=== PATIENT | female | born 1955 | race Caucasian/White ===

== ENCOUNTER 2022-07-20 07:52 | Day surgery (SDC) | payer MEDICARE, MEDICAID ==
[~2022-07-20] VITALS: Ht 154.9 cm; Wt 118.4 kg
[~2022-07-20 07:52] MED LIST: ASPE16CR TOP; BROV15NE INH; CEFUROXIME 1MG/0.1ML INTRACAMERAL INJ As Ordered ONE; CYCLOPENTOLATE 1% OPHTH SOLN 2ML BTL OD SCH; FAMO10TA52 PO; FERR325T81 PO; FLON1SPR; GABA800T4 PO; GLIP5TAB20 PO; HYDR-3911 PO; LASI80TA3 PO; LIDOCAINE 1% 1ML PF SYRINGE (OR EYE CASES) As Ordered ONE; LISI40TA4 PO; METF10004 PO; METO50TA7 PO; MYRB25TA PO; OFLOXACIN 0.3 % (OCUFLOX) OPTH SOL 5ML OD SCH; OZEM2INJ SC; PHENYLEPHRINE 2.5% OPHTH SOL 2ML OD SCH; PROPARACAINE 0.5% OPHTH SOL 15ML OD ONE; PULM0.5S INH; TRAZ-189 PO; TROPICAMIDE 1% OPHTH SOLN 15ML OD SCH; ZYPR10TA PO; cogentin PO
[2022-07-20] MEDS ORDERED: fentaNYL 100 MCG/2 ML INJECTION As Ordered ONE (09:58)
[2022-07-20] MEDS ORDERED: MIDAZOLAM INJ 2MG/2ML VIAL As Ordered ONE (09:58)
[2022-07-20 10:20] VITALS: BP 133/73
== END 2022-07-20 10:54 | disposition home or self-care (01) ==
LOC: M SDC 07:52
PROVIDERS: ATTEND Ophthalmology
DX: H25.11 Age-related nuclear cataract, right eye (principal); I10 Essential (primary) hypertension; E11.9 Type 2 diabetes mellitus without complications; J44.9 Chronic obstructive pulmonary disease, unspecified; Z87.891 Personal history of nicotine dependence; K21.9 Gastro-esophageal reflux disease without esophagitis; G47.33 Obstructive sleep apnea (adult) (pediatric); Z88.2 Allergy status to sulfonamides; Z88.1 Allergy status to other antibiotic agents; Z88.5 Allergy status to narcotic agent
CPT/HCPCS: 66984; V2632

== ENCOUNTER 2025-07-01 07:24 | Day surgery (SDC) | payer MEDICARE, MEDICAID ==
[~2025-07-01] VITALS: Ht 149.9 cm; Wt 98.9 kg
[~2025-07-01 07:24] MED LIST changes: +ACET-897 PO; -ASPE16CR TOP; +B-12100021 PO; -CEFUROXIME 1MG/0.1ML INTRACAMERAL INJ As Ordered ONE; -CYCLOPENTOLATE 1% OPHTH SOLN 2ML BTL OD SCH; +ELIQ5TAB PO; +GABA-1635 PO; +GABA-284 PO; -GABA800T4 PO; +GLIP-318 PO; -GLIP5TAB20 PO; -HYDR-3911 PO; +HYDR50TA46 PO; +IPRA0.00 INH; +LIDO76.52 TOP; -LIDOCAINE 1% 1ML PF SYRINGE (OR EYE CASES) As Ordered ONE; +LISI40TA10 PO; -LISI40TA4 PO; +LOPE1CAP5 PO; +LR 1,000 ML IV SCH; +MAGN250T17 PO; +MAGN400T35 PO; +METO1TAB87 PO; +MIDAZOLAM INJ 2 MG/2 ML VIAL As Ordered ONE; +MILKSUS3 PO; +MIRA3350 PO; -OFLOXACIN 0.3 % (OCUFLOX) OPTH SOL 5ML OD SCH; +OLAN1TAB20 PO; -PHENYLEPHRINE 2.5% OPHTH SOL 2ML OD SCH; -PROPARACAINE 0.5% OPHTH SOL 15ML OD ONE; +RISP0.5T21 PO; +RISP1TAB42 PO; +SEMA0.257 SQ; -TROPICAMIDE 1% OPHTH SOLN 15ML OD SCH; +URE-15PO PO; +[UNRECOGNIZED DRUG - CODE] PO; +urea PO
[2025-07-01] MEDS: FLURBIPROFEN 0.03% OPHTH SOLN 2.5 ML OS SCH (08:44)
[2025-07-01] MEDS: TETRACAINE 0.5% OPHTH SOLN 4ML OS SCH (08:44)
[2025-07-01] MEDS: PHENYLEPHRINE 2.5% OPHTH SOL 2ML OS SCH (08:44)
[2025-07-01] MEDS: CYCLOPENTOLATE 1% OPHTH SOLN 2 ML BTL OS SCH (08:44)
[2025-07-01] MEDS: CEFUROXIME 1 MG/0.1 ML INTRACAMERAL INJ As Ordered ONE (09:47)
[2025-07-01] MEDS: LIDOCAINE 1% SDV 5 ML VIAL As Ordered ONE (09:47)
[2025-07-01 09:53] VITALS: BP 143/79; TEMP 97.6; O2SAT 92
== END 2025-07-01 10:25 | disposition home or self-care (01) ==
LOC: M SDC 07:24
PROVIDERS: ATTEND Ophthalmology
DX: H25.12 Age-related nuclear cataract, left eye (principal); I48.91 Unspecified atrial fibrillation; I10 Essential (primary) hypertension; E11.9 Type 2 diabetes mellitus without complications; K21.9 Gastro-esophageal reflux disease without esophagitis; F31.9 Bipolar disorder, unspecified; F41.9 Anxiety disorder, unspecified; F32.A Depression, unspecified; G47.33 Obstructive sleep apnea (adult) (pediatric); Z79.84 Long term (current) use of oral hypoglycemic drugs; Z79.899 Other long term (current) drug therapy; Z79.01 Long term (current) use of anticoagulants; J44.9 Chronic obstructive pulmonary disease, unspecified; Z88.5 Allergy status to narcotic agent; Z88.1 Allergy status to other antibiotic agents; Z88.8 Allergy status to other drugs, medicaments and biological substances
CPT/HCPCS: 66984; J0697; J2250; J3010; V2632